=== PATIENT | male | born 1990 | race Caucasian/White ===

== ENCOUNTER 2022-02-10 12:33 | Emergency (ER) | payer OTHER, SELFPAY ==
[2022-02-10] VITALS (20 sets, daily range): BP systolic 116–156; BP diastolic 81–98; PULSE 69–110; RESP 11–25; TEMP 36.9; O2SAT 83–100
--- NOTE | ~2022-02-10 | XR_ITS ---
EXAMINATION: XR chest 2V DATE: 02/10/2022 13:04 INDICATION: Right-sided and central chest pain TECHNIQUE: PA and lateral views of the chest were obtained. COMPARISON: None FINDINGS: The lungs are clear with no focal airspace opacities, pulmonary edema, pleural effusion or pneumothor ax. The cardiomediastinal silhouette is normal. Visualized bones and soft tissues are unremarkable. IMPRESSION: 1. No acute cardiopulmonary disease. Reviewed, dictated and finalized at location A.
--- NOTE | 2022-02-10 12:36 | ECG_ITS ---
Measurements Intervals [place] Rate: 113 P: 71 NC: 184 QRS: 70 QRSD: 93 T: 48 QT: 294 QTc: 404 Interpretive Statements SINUS TACHYCARDIA POSSIBLE LEFT ATRIAL ENLARGEMENT INCOMPLETE RIGHT BUNDLE BRANCH BLOCK BORDERLINE ST ABNORMALITY- ANTEROLAT/INF LEADS BASELINE ARTIFACT- I, II, V5 ABNORMAL ECG NO PREVIOUS ECG AVAILABLE FOR COMPARISON Electronically Signed On 02-10-2022 18:37:53 CDT by Kofi Veliz D.O.
[2022-02-10 12:54] LABS: Basophils Percent Auto 0.4 % (0.2-1.2); Eosinophils Absolute Auto 0.1 K/mm3 (0-0.3); Hematocrit 49.1 % (42.0-52.0); Hemoglobin 16.7 g/dL (14.0-18.0); Immature Granulocyte Absolute 0.02 K/mm3 (0.00-0.031); Immature Granulocyte Percent A 0.3 % (0-0.5); Lymphocytes Absolute Auto 3.56 K/mm3 (0.9-3.2); Lymphocytes Percent Auto 44.7 % (18.3-44.2); Mean Corpuscular Hemoglobin 29.8 pg (26-34); Mean Corpuscular Volume 87.5 fl (80-100); Mean Platelet Volume 10.5 fl (7.4-10.4); Monocytes Absolute Auto 0.5 K/mm3 (0.1-0.6); Monocytes Percent Auto 5.8 % (2.6-8.5); Neutrophils Absolute Auto 3.8 K/mm3 (1.3-6.7); Neutrophils Percent Auto 47.8 % (45.5-73.1); Platelet Count Result 225 k/mm3 (150-375); Red Blood Count 5.61 M/mm3 (4.6-6.20); Red Cell Distribution Width 11.9 % (11.5-14.5)
--- NOTE | 2022-02-10 13:00 | ED.CHESTPAIN ---
HPI - Chest Pain General Chief Complaint: Chest Pain Stated Complaint: chest pain Time Seen by Provider: 02/10/22 12:34 Source: RN notes reviewed History of Present Illness HPI narrative: Patient presents emergency department from home for palpitations. Patient states that initial episode of palpitations occurred early Saturday morning when he awoke from sleeping and folic his heart was racing states the episode lasted for approximately 5 minutes and then resolved he states he had a short amount of chest pressure following that then resolved and he has had no chest pressure since that time he states that he had been doing better and then today just prior to arrival he had a short episode of palpitations that again lasted for several minutes and then resolved he states he was walking up the stairs when it happened and he felt his heart was racing he denied having any chest pain with that episode he denies any fevers or chills shortness of breath abdominal pain or any other symptoms Related Data Allergies Allergy/AdvReac Type Severity Reaction Status Date / Time No Known Allergies Allergy Verified 02/10/22 12:46 Review of Systems Review of Systems: Gen.: Denies fevers or chills ENT: Denies congestion Respiratory: Denies shortness of breath or cough CV: See HPI GI: Denies abdominal pain nausea, emesis or diarrhea Musculoskeletal: Denies back pain or muscle pain Neuro: Denies numbness, tingling, weakness or focal weakness Skin: Denies rash Except as documented, all other systems reviewed and negative PMFSH Past Medical History Medical History (Updated 02/10/22 @ 19:06 by Mumtaz Byrd DO) Patient denies significant medical history Social History Social History (Updated 02/10/22 @ 16:51 by Mumtaz Byrd DO) Smoking status: Never smoker Exam Narrative: APPEARANCE: No acute distress, nontoxic, resting in bed EYES: EOMI HEENT: Normocephalic, atraumatic, OMM RESPIRATORY: No respiratory distress Clear to auscultation bilaterally with no rhonchi wheezing or rales. CARDIOVASCULAR: Regular rate and rhythm without murmurs rubs or gallops. ABDOMINAL: Soft, nontender, nondistended, no rebound or guarding MUSCULOSKELETAl: Moves all extremities. No clubbing, cyanosis or edema. NEURO: Awake and alert. Following commands, speech normal, no focal deficits SKIN:: Warm, dry. No rashes lesions or abrasions PSYCHIATRIC: Normal affect/mood, Course Course Emergency Course: Patient has remained on cardiac rn throughout stay in ED with no episodes of arrhythmia Called and discussed with Dr. Alejandra after initial troponin bump EKGs were sent to Dr. Alejandra review no evidence of ischemia at that time and Dr. Alejandra feels the patient may be discharged with follow-up as an outpatient we will hold patient for 6-hour troponin Discussed with Dr. Alejandra results of 6-hour troponin at this time feels patient may be discharged with follow-up as an Discussed with patient results of workup and diagnosis. Discussed need for follow-up with primary care, proper use of medication, and reasons to return to the emergency department. Patient understands and agrees to current treatment plan Vital Signs Vital signs: Vital Signs Temperature 98.4 F 02/10/22 12:42 Pulse Rate 110 H 02/10/22 12:42 Respiratory Rate 20 02/10/22 12:42 Blood Pressure 137/98 H 02/10/22 12:42 Pulse Oximetry 100 02/10/22 12:42 Oxygen Delivery Room Air 02/10/22 12:42 Temperature 98.4 F 02/10/22 12:42 Pulse Rate 93 02/10/22 17:47 Respiratory Rate 18 02/10/22 17:47 Blood Pressure 122/81 02/10/22 17:47 Pulse Oximetry 99 02/10/22 17:47 Oxygen Delivery Room Air 02/10/22 12:42 MDM - Chest Pain MDM Narrative Medical decision making narrative: Patient presents for palpitations initial episode palpitations was early Saturday morning following that he has a mild chest pain he has had no chest pain since that time so he has
[2022-02-10 13:03] LABS: Anion Gap 13 mmol/L (8-16); Aspartate Amino Transferase 36 U/L (17-59); Bilirubin,Total 0.8 mg/dL (0.2-1.3); Blood Urea Nitrogen 11 mg/dL (9-20); Calcium 9.5 mg/dL (8.4-10.2); Carbon Dioxide 24 mmol/L (22-30); Chloride 104 mmol/L (98-107); Estimated CRCL calculation 92 ml/min; Estimated Glomerular Filt Rate > 60; Glucose 103 mg/dL (65-110); Potassium 3.5 mmol/L (3.4-5.0); Sodium 141 mmol/L (137-145)
[2022-02-10 13:04] LABS: Alanine Aminotransferase 65 U/L (6-50); Albumin Level 4.9 g/dL (3.5-5.1); Alkaline Phosphatase 70 U/L (38-126); Lipase 175 U/L (23-300)
[2022-02-10 13:09] LABS: Prothrombin Time 12.6 Seconds (11.1-14.7)
[2022-02-10 13:10] LABS: Partial Thromboplastin Time 29.5 SECONDS (22.3-36.8)
[2022-02-10 13:15] LABS: Troponin I < 0.012 ng/mL (0.000-0.034)
[2022-02-10] MEDS: ASPIRIN 81 MG CHEWABLE TABLET 324 MG PO (13:21)
[2022-02-10] MEDS: SODIUM CHLORIDE 0.9% IV 1,000 ML 999 ML IV CONT (13:22)
[2022-02-10 13:23] LABS: D Dimer < 0.27 ug/mL (<0.48)
--- NOTE | 2022-02-10 15:27 | ECG_ITS ---
Measurements Intervals [place] Rate: 92 P: 62 [place]: 170 QRS: 52 QRSD: 90 T: 46 QT: 323 QTc: 401 Interpretive Statements SINUS RHYTHM WITH MARKED SINUS ARRHYTHMIA POSSIBLE LEFT ATRIAL ENLARGEMENT INCOMPLETE RIGHT BUNDLE BRANCH BLOCK BORDERLINE ECG COMPARED TO ECG 02/10/2022 12:38:26 SINUS RHYTHM NOW PRESENT SINUS ARRHYTHMIA NOW PRESENT Electronically Signed On 02-10-2022 18:46:01 CDT by Kofi Veliz D.O.
[2022-02-10 16:14] LABS: Troponin I 0.041 ng/mL (0.000-0.034)
[2022-02-10 18:15] LABS: SARS-CoV-2 RNA PCR Negative
[2022-02-10 18:54] LABS: Troponin I 0.037 ng/mL (0.000-0.034)
== END 2022-02-10 19:55 | disposition home or self-care (01) ==
PROVIDERS: Emergency Provider Emergency Medicine
DX: R00.2 Palpitations (principal)
CPT/HCPCS: 36415; 71046; 80053; 83690; 83735; 84443; 84484; 85025; 85380; 85610; 85730; 93005; 96360; 99284; A9270; C9803; J7030; U0003; U0005